=== PATIENT | female | born 1995 | race Asian ===

== ENCOUNTER 2018-02-01 15:14 | Emergency (ER) | payer OTHER ==
[2018-02-01 17:02] VITALS: BP 138/86
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
== END 2018-02-01 17:25 | disposition home or self-care (01) ==
DX: S42.021A Displaced fracture of shaft of right clavicle, initial encounter for closed fracture (principal); V03.10XA Pedestrian on foot injured in collision with car, pick-up truck or van in traffic accident, initial encounter; Y93.01 Activity, walking, marching and hiking; Y92.410 Unspecified street and highway as the place of occurrence of the external cause; Y99.8 Other external cause status
CPT/HCPCS: A4565